=== PATIENT | female | born 1985 | race Two or more races ===

== ENCOUNTER 2018-06-18 23:01 | Emergency (ER) | payer BC ==
[~2018-06-18] VITALS: Ht 157.5 cm; Wt 55.8 kg
--- NOTE | 2018-06-18 23:23 | NUR ---
URINE SPECIMEN OBTAINED AND SENT TO THE LAB.
[2018-06-18] MEDS ORDERED: KETOROLAC TROMETHAMINE INJ 30 MG/ML VIAL IV ONE (23:30)
--- NOTE | 2018-06-18 23:30 | NUR ---
BIBS. C/O "HAVING ABD CRAMPS X1WEEK" -SOB -N/V -DIZZY. PT AOX4. AMBULATORY W,STEADY GAIT.
[2018-06-18] MEDS ORDERED: KETOROLAC TROMETHAMINE INJ 60 MG/2 ML VIAL IM ONE (23:40)
[2018-06-19] MEDS ORDERED: KETOROLAC TROMETHAMINE INJ 60 MG/2 ML VIAL IM ONE
[2018-06-19 00:08] LABS: APPEARANCE,URINE CLEAR (CLEAR); BILIRUBIN,URINE NEGATIVE (NEGATIVE); BLOOD, URINE TRACE-INTA Ery/uL (NEGATIVE); COLOR,URINE YELLOW (YELLOW); KETONES,URINE 2+ (NEGATIVE); LEUKOCYTE ESTERASE ,URINE NEGATIVE (NEGATIVE); NITRITE, URINE NEGATIVE (NEGATIVE); PH,URINE 5.5 (5.0-8.0); PROTEIN,URINE NEGATIVE (NEGATIVE); UGLUCOSE NEGATIVE (NEGATIVE); UROBILINOGEN,URINE 0.2 EU/dL (0.2)
[2018-06-19 00:19] LABS: BACTERIA,URINE None seen /HPF (None Seen); RBC,URINE 0-2 /HPF (0-2); SQUAMOUS EPITHELIAL CELL,UR Few /HPF (None Seen); WBC,URINE 0-2 /HPF (0-3)
[2018-06-19 01:23] VITALS: BP 118/78
== END 2018-06-19 01:28 | disposition home or self-care (01) ==
LOC: ER 23:06
DX: N93.8 Other specified abnormal uterine and vaginal bleeding (principal); R10.2 Pelvic and perineal pain; K59.00 Constipation, unspecified
CPT/HCPCS: 36415; 74018; 76856; 81001; 84702; 96372; 99284; A4606; J1885; 81000-TC